=== PATIENT | female | born 1995 | race Caucasian/White ===

== ENCOUNTER 2021-02-04 16:47 | Emergency (ER) | payer OTHER ==
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
[2021-02-04 17:32] VITALS: BP 0/0; PULSE 0; RESP 0
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
== END 2021-02-04 20:02 | disposition expired ==
LOC: EDBD → EC 16:47
DX: I46.9 Cardiac arrest, cause unspecified (principal)
CPT/HCPCS: 31500; 72050; 92950; 99291